=== PATIENT | male | born 1950 | race Caucasian/White ===

== ENCOUNTER → 2019-09-24 | Outpatient (CLI) | payer OTHER | END | disposition home or self-care (01) | LOC: PETCFH 12:26 | PROVIDERS: ATTEND Specialist | DX: R91.8 Other nonspecific abnormal finding of lung field (principal) | CPT/HCPCS: 78815; A9552 ==

== ENCOUNTER 2020-02-15 09:46 | Inpatient (IN) | payer OTHER ==
[~2020-02-15] VITALS: Ht 195.6 cm; Wt 95.4 kg
[2020-02-15] MEDS ORDERED: SODIUM CHLORIDE FLUSH 10ML SYR IVF ONE (10:00)
[2020-02-15] MEDS ORDERED: MORPHINE SULFATE 4 MG/ML, 1ML ONE ×2 (10:04→10:34)
[2020-02-15] MEDS: MORPHINE SULFATE 4 MG/ML, 1ML IVPush PRN ×2 (10:06→10:43)
[2020-02-15 10:22] LABS: BASOPHILS % (AUTO) 1 % (0-1); EOSINOPHILS % (AUTO) 0 % (1-7); LYMPHOCYTES % (AUTO) 8 % (22-44); MEAN CORPUSCULAR HGB CONC 32.5 g/dL (33.2-36.2); MEAN PLATELET VOLUME 7.6 fL (7.4-10.4); MONOCYTES % (AUTO) 10 % (2-9); NEUTROPHILS % (AUTO) 81 % (42-75); PLATELET COUNT 256 x10^3/uL (130-400); RED BLOOD COUNT 4.44 x10^6/uL (4.38-5.82); RED CELL DISTRIBUTION WIDTH 13.7 % (9.4-14.8)
[2020-02-15 10:28] LABS: INTERNATIONAL NORMALIZED RATIO 1.1 (0.93-1.1); PROTHROMBIN TIME 11.3 Seconds (9.6-11.5)
[2020-02-15 10:29] LABS: ALANINE AMINOTRANSFERASE 15 U/L (12-78); ALBUMIN 2.7 g/dL (3.4-5.0); ANION GAP 4 mmol/L (5-15); CALCIUM 8.8 mg/dL (8.5-10.1); CHLORIDE 101 mmol/L (98-107); CREATININE 1.05 mg/dL (0.7-1.3)
[2020-02-15 10:34] LABS: ALKALINE PHOSPHATASE 76 U/L (45-117); BILIRUBIN,TOTAL 0.9 mg/dL (0.2-1.0); TOTAL PROTEIN 6.4 g/dL (6.4-8.2)
[2020-02-15 10:41] LABS: MD SCAN
[2020-02-15] MEDS ORDERED: HYDROmorphone 1 MG/ML, 1ML INJ ONE ×2 (10:41→13:07)
[2020-02-15] MEDS: HYDROmorphone 1 MG/ML, 1ML INJ IV PRN ×2 (10:43→13:12)
--- NOTE | 2020-02-15 10:44 | NUR ---
pt developed severe chest pain, md brought to bedsdie, ekg repeated, morphine repeated 1 of dilaudid given
[2020-02-15] MEDS ORDERED: OMNIPAQUE 350 MG/ML, 75ML BOTTLE ONE (11:03)
--- NOTE | 2020-02-15 11:32 | NUR ---
pain improved, ct resulted, pt reting at this time
[2020-02-15] MEDS: AZITHROMYCIN 500 MG in SODIUM CHLORIDE 0.9% 250 ML IV ONE ×2 (12:00→13:16)
[2020-02-15] MEDS ORDERED: CEFTRIAXONE PMX 1GM/50ML 50 ML IVPB ONE (12:00)
--- NOTE | 2020-02-15 12:11 | NUR ---
Break RN note: Pt resting in bed speaking with admitting doctor who is at bedside. Pt denies pain currently. Pt speaking in full sentences, resp even and unlabored, NADN. Pt denies other needs at this time.
--- NOTE | 2020-02-15 12:26 | NUR ---
Break RN note: Pt ambulatory to bathroom and back to bed without difficulty, gait steady. Pt denies other needs.
[2020-02-15] MEDS ORDERED: CEFTRIAXONE PMX 1GM/50ML 50 ML ONE (12:29)
[2020-02-15] MEDS ORDERED: HOLD MEDICATION MC PRN (12:30)
--- NOTE | 2020-02-15 13:21 | NUR ---
attempt to call 1
--- NOTE | 2020-02-15 13:21 | NUR ---
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
[2020-02-15] MEDS ORDERED: ACETAMINOPHEN 325 MG TABLET PO PRN (14:00)
[2020-02-15] MEDS ORDERED: TRAZODONE 50MG TABLET PO PRN (14:00)
[2020-02-15] MEDS ORDERED: ENALAPRILAT 1.25 MG/ML, 2ML IVPush PRN (14:00)
[2020-02-15] MEDS ORDERED: ONDANSETRON 2MG/ML, 2ML IVPush PRN (14:00)
[2020-02-15] MEDS ORDERED: ONDANSETRON ODT 4 MG PO PRN (14:00)
[2020-02-15 15:02] VITALS: BP 146/88
[2020-02-15] MEDS ORDERED: HEPARIN 25,000 UNITS/250ML PMX 250 ML IV PRN (15:30)
[2020-02-15] MEDS ORDERED: HEPARIN 5,000 UNITS/ML, 1ML IV PRN (15:30)
[2020-02-15] MEDS ORDERED: HEPARIN 5,000 UNITS/ML, 1ML IV ONE (15:30)
[2020-02-15] MEDS ORDERED: MIDAZOLAM 1 MG/ML, 5ML ONE (16:11)
[2020-02-15] MEDS ORDERED: FENTANYL PF 100 MCG/2ML ONE (16:11)
[2020-02-15] MEDS ORDERED: LIDOCAINE-MPF 1%, 5ML ONE (16:12)
[2020-02-15] MEDS ORDERED: VERAPAMIL 2.5 MG/ML, 2ML ONE (16:12)
[2020-02-15] MEDS ORDERED: HEPARIN 1,000 UNITS/ML, 10ML ONE (16:12)
[2020-02-15] MEDS ORDERED: BIVALIRUDIN 250 MG ONE (16:12)
[2020-02-15 17:00] VITALS: BP 138/84
[2020-02-15] MEDS: SODIUM CHLORIDE 0.9% 1,000 ML IV SCH (17:00)
[2020-02-15 17:30] VITALS: BP 144/67
[2020-02-15] MEDS: METOPROLOL TARTRATE 25 MG TAB PO SCH (17:40)
[2020-02-15] MEDS: morphine SULFATE 10 MG/ML, 1ML IVPush PRN ×2 (17:40→22:30)
[2020-02-15 17:52] VITALS: BP 142/66
[2020-02-15 18:02] VITALS: BP 139/78
[2020-02-15] MEDS ORDERED: SIMVASTATIN 40 MG TABLET PO SCH (21:00)
[2020-02-15] MEDS: DOCUSATE 100 MG CAPSULE PO PRN (22:45)
[2020-02-16] MEDS: SODIUM CHLORIDE 0.9% 1,000 ML IV SCH (00:01)
[2020-02-16 03:11] VITALS: BP 129/80
[2020-02-16] MEDS: morphine SULFATE 10 MG/ML, 1ML IVPush PRN ×2 (03:35→09:28)
[2020-02-16 05:06] LABS: BASOPHILS % (AUTO) 1 % (0-1); EOSINOPHILS % (AUTO) 1 % (1-7); LYMPHOCYTES % (AUTO) 11 % (22-44); MEAN CORPUSCULAR HEMOGLOBIN 31.5 pg (27.5-34.5); MEAN CORPUSCULAR HGB CONC 33.4 g/dL (33.2-36.2); MEAN PLATELET VOLUME 7.9 fL (7.4-10.4); MONOCYTES % (AUTO) 10 % (2-9); NEUTROPHILS % (AUTO) 77 % (42-75); PLATELET COUNT 213 x10^3/uL (130-400); RED BLOOD COUNT 4.13 x10^6/uL (4.38-5.82); RED CELL DISTRIBUTION WIDTH 13.8 % (9.4-14.8)
[2020-02-16 05:09] LABS: CALCIUM 8.7 mg/dL (8.5-10.1); CHLORIDE 103 mmol/L (98-107)
[2020-02-16 05:13] LABS: ANION GAP 6 mmol/L (5-15); CREATININE 0.97 mg/dL (0.7-1.3)
[2020-02-16 05:44] LABS: MD SCAN
[2020-02-16] MEDS: METOPROLOL TARTRATE 25 MG TAB PO SCH ×2 (06:30→17:16)
[2020-02-16 07:34] VITALS: BP 143/91
[2020-02-16] MEDS ORDERED: ASPIRIN 325 MG TABLET PO SCH (09:00)
[2020-02-16] MEDS ORDERED: TAMSULOSIN 0.4 MG CAP.ER.24H PO SCH (09:00)
[2020-02-16] MEDS ORDERED: ENOXAPARIN 40 MG/0.4 ML SQ SCH (10:30)
[2020-02-16] MEDS: DOCUSATE 100 MG CAPSULE PO PRN (11:14)
[2020-02-16 12:28] VITALS: BP 136/86
[2020-02-16] MEDS ORDERED: PSYL1POW PO (15:34)
[2020-02-16] MEDS ORDERED: LISI10TA2 PO (15:34)
[2020-02-16] MEDS ORDERED: ATOR40TA78 PO (15:34)
[2020-02-16] MEDS ORDERED: TAMS-11 PO (15:34)
[2020-02-16] MEDS ORDERED: DOCU240C53 PO (15:34)
[2020-02-16] MEDS ORDERED: DABI150C PO (15:34)
[2020-02-16] MEDS ORDERED: SILD50TA PO (15:34)
[2020-02-16] MEDS ORDERED: ENOX100S4 SQ (17:08)
[2020-02-16] MEDS ORDERED: AMOX1TAB64 PO (18:08)
[2020-02-16] MEDS ORDERED: METO25TA35 PO (18:08)
[2020-02-16] MEDS ORDERED: LACT1TAB13 PO (18:08)
[2020-02-16] MEDS ORDERED: ASPI325T17 PO (18:08)
== END 2020-02-16 18:30 | disposition home or self-care (01) | DRG 280 ==
LOC: ED 10:19 → EDIP 11:29 → ICU 14:59
PROVIDERS: ADMIT Internal Medicine; ATTEND Internal Medicine
PROC: 4A023N7 Measurement of Cardiac Sampling and Pressure, Left Heart, Percutaneous Approach (ICD-10-PCS; principal; 2020-02-15)
PROC: B2111ZZ Fluoroscopy of Multiple Coronary Arteries using Low Osmolar Contrast (ICD-10-PCS; 2020-02-15)
PROC: B2151ZZ Fluoroscopy of Left Heart using Low Osmolar Contrast (ICD-10-PCS; 2020-02-15)
DX: I25.10 Atherosclerotic heart disease of native coronary artery without angina pectoris (principal); I21.A1 Myocardial infarction type 2; J18.9 Pneumonia, unspecified organism; D68.69 Other thrombophilia; E87.1 Hypo-osmolality and hyponatremia; I50.20 Unspecified systolic (congestive) heart failure; I48.20 Chronic atrial fibrillation, unspecified; Z20.828 Contact with and (suspected) exposure to other viral communicable diseases; D63.8 Anemia in other chronic diseases classified elsewhere; E88.09 Other disorders of plasma-protein metabolism, not elsewhere classified; I11.0 Hypertensive heart disease with heart failure; Z72.0 Tobacco use; I77.819 Aortic ectasia, unspecified site; I34.0 Nonrheumatic mitral (valve) insufficiency; J43.9 Emphysema, unspecified; Z79.01 Long term (current) use of anticoagulants; Z85.51 Personal history of malignant neoplasm of bladder
CPT/HCPCS: 36415; 71045; 71275; 80048; 80053; 83605; 83880; 84484; 85025; 85520; 85610; 85730; 87040; 87081; 87635; 93005; 93306; 93458; 93571; 99156; 99285; C1769; G0378; J0456; J0583; J0696; J1170; J1644; J1650; J2250; J3010; Q9967; J2270; J7050

== ENCOUNTER → 2020-07-14 | Outpatient (CLI) | payer OTHER ==
[~2020-07-14] MED LIST: AMOX1TAB64 PO; ASPI325T17 PO; ATOR40TA78 PO; DABI150C PO; DOCU240C53 PO; ENOX100S4 SQ; LACT1TAB13 PO; LISI10TA19 PO; METO25TA35 PO; PSYL1POW PO; SILD50TA PO; TAMS-11 PO
== END | disposition home or self-care (01) ==
LOC: PETCFH 08:23
PROVIDERS: ATTEND Surgery
DX: R91.1 Solitary pulmonary nodule (principal); D38.1 Neoplasm of uncertain behavior of trachea, bronchus and lung
CPT/HCPCS: 78815; A9552